=== PATIENT | male | born 1965 | race Caucasian/White ===

== ENCOUNTER 2019-08-23 21:10 | Emergency (ER) | payer BC ==
[~2019-08-23] VITALS: Ht 182.9 cm; Wt 105.0 kg
[2019-08-23] MEDS ORDERED: LIDOcaine Viscous 15ml cup MM ONE (21:45)
[2019-08-23] MEDS ORDERED: mag hydrox/Alum hydrox/simeth 30ml oral suspension PO ONE ×2 (21:45→23:45)
[2019-08-23] MEDS ORDERED: ondansetron/PF 4mg/2ml inj IV ONE (21:45)
[2019-08-23] MEDS ORDERED: aspirin 325mg tablet PO ONE (21:45)
[2019-08-23] MEDS ORDERED: normal saline 1000ml 1,000 ML IV ONE ×2 (21:45→23:25)
[2019-08-23] MEDS ORDERED: famotidine 20mg tablet PO ONE (21:45)
[2019-08-23 21:47] LABS: EOSINOPHILS % (AUTO) 0 % (0-6); HEMATOCRIT 50.7 % (42.0-52.0); LYMPHOCYTES # (AUTO) 2.4 X10'3 (1.1-4.8); MONOCYTES # (AUTO) 0.7 X10'3 (0-0.9); RED CELL DISTRIBUTION WIDTH 13.5 % (11.5-14.5); WHITE BLOOD COUNT 16.3 X10'3 (4.5-11.0)
[2019-08-23 21:48] LABS: BASOPHILS # (AUTO) 0.1 X10'3 (0-0.2); BASOPHILS % (AUTO) 0.4 % (0-1); HEMOGLOBIN 17.4 g/dl (14.0-17.9); MEAN CORPUSCULAR HEMOGLOBIN 32.9 PG (27.0-31.0); MEAN CORPUSCULAR HGB CONC 34.2 g/dL (33.0-36.5); MEAN CORPUSCULAR VOLUME 95.9 FL (78-98); MONOCYTES % (AUTO) 4.1 % (2-12); NEUTROPHILS # (AUTO) 13.1 X10'3 (1.8-7.7); NEUTROPHILS % (AUTO) 80.5 % (42-75); PLATELET COUNT 373 X10'3 (140-440); RED BLOOD COUNT 5.28 X10'6 (4.70-6.10)
[2019-08-23 22:08] LABS: ALANINE AMINOTRANSFERASE 22 U/L (12-78); ALBUMIN 4.8 G/DL (3.4-5.0); ALBUMIN/GLOBULIN RATIO 1.2 (1.1-1.5); ALKALINE PHOSPHATASE 93 IU/L (46-116); ANION GAP 25 (8-16); ASPARTATE AMINO TRANSFERASE 22 U/L (10-37); BILIRUBIN,TOTAL 0.8 MG/DL (0.1-1.0); BLOOD UREA NITROGEN 29 MG/DL (7-18); BUN/CREATININE RATIO 23.4 (5.4-32.0); CALCIUM 9.5 MG/DL (8.5-10.1); CHLORIDE 100 MMOL/L (99-107); CREATININE 1.24 MG/DL (0.60-1.10); GLUCOSE 61 MG/DL (70-104); SODIUM 138 MMOL/L (135-145); TOTAL PROTEIN 8.7 G/DL (6.4-8.2); TROPONIN I < 0.04 NG/ML (0.0-0.05); eGFR 61 ML/MIN
[2019-08-23 22:10] LABS: POTASSIUM 4.6 MMOL/L (3.5-5.1)
[2019-08-23] MEDS ORDERED: morphine 4 MG/ML inj SYRINge IV ONE (22:25)
[2019-08-23] MEDS ORDERED: methylPREDNISolone sod succ 125mg/2ml vial IV ONE (22:50)
[2019-08-23] MEDS ORDERED: diphenhydrAMINE 50 mg/ml inj IV ONE ×2 (22:50)
--- NOTE | 2019-08-23 22:59 | NUR ---
PT GIVEN IV MORPHINE. HE FELT LIKE HIS THROAT WAS CLOSING A LITTLE AND FELT SOME SHORTNESS OF BREATH COMING ON. HE STATES BOTH HIS ARMS FEEL TINGLY AND FEELS LIKE HIS CHEST IS A LITTLE TIGHT. DR DOUGLAS MADE AWARE. PT GIVEN IV BENADRYL AND SOLUMEDROL.
[2019-08-23] MEDS ORDERED: pantoprazole 40 MG vial IV ONE (23:30)
[2019-08-23] MEDS ORDERED: dextrose 50%-water 50ml dispensing syringe IV ONE (23:35)
[2019-08-24] MEDS ORDERED: sucralfate 1gm/10ml UD suspension PO ONE (00:35)
[2019-08-24] MEDS ORDERED: ketorolac trometh. 30mg/ml inj. IV ONE (00:35)
[2019-08-24 01:43] LABS: ALBUMIN 3.9 G/DL (3.4-5.0); ANION GAP 19 (8-16); BLOOD UREA NITROGEN 25 MG/DL (7-18); BUN/CREATININE RATIO 22.7 (5.4-32.0); CALCIUM 8.1 MG/DL (8.5-10.1); CHLORIDE 105 MMOL/L (99-107); GLUCOSE 100 MG/DL (70-104); POTASSIUM 4.6 MMOL/L (3.5-5.1); SODIUM 139 MMOL/L (135-145); TOTAL CARBON DIOXIDE 15.1 MMOL/L (24-32); eGFR 71 ML/MIN
[2019-08-24] MEDS ORDERED: normal saline 1000ml 1,000 ML IV ONE (01:50)
[2019-08-24] MEDS ORDERED: dextrose 50%-water 50ml dispensing syringe IV ONE (01:50)
[2019-08-24] MEDS ORDERED: PANT-47 PO (01:55)
[2019-08-24] MEDS ORDERED: ONDA8TAB6 PO (02:18)
[2019-08-24 02:57] VITALS: BP 141/79
== END 2019-08-24 03:00 | disposition home or self-care (01) ==
LOC: ER 21:11
DX: K21.9 Gastro-esophageal reflux disease without esophagitis (principal); E78.00 Pure hypercholesterolemia, unspecified; I10 Essential (primary) hypertension; Z88.5 Allergy status to narcotic agent; Z79.899 Other long term (current) drug therapy
CPT/HCPCS: 36415; 71045; 71250; 74176; 80048; 80053; 82948; 84145; 84484; 85025; 93005; 96374; 96375; 96376; 99285; C9113; J1200; J1885; J2270; J2405; J2930; J7030